=== PATIENT | female | born 1955 | race Caucasian/White ===

== ENCOUNTER 2019-04-24 07:54 | Emergency (ER) | payer MEDICAID ==
[~2019-04-24] VITALS: Ht 162.6 cm; Wt 66.7 kg
[2019-04-24 08:18] VITALS: Ht 162.6 cm; Wt 66.7 kg
[2019-04-24 11:23] VITALS: BP 124/76
== END 2019-04-24 11:10 | disposition home or self-care (01) ==
LOC: ED 07:54
DX: J11.1 Influenza due to unidentified influenza virus with other respiratory manifestations (principal); J40 Bronchitis, not specified as acute or chronic; I10 Essential (primary) hypertension
CPT/HCPCS: 87804; J1885; J2765; J7030; Q0092